=== PATIENT | female | born 1950 | race Caucasian/White ===

== ENCOUNTER → 2016-11-19 | Outpatient (CLI) | payer OTHER, MEDICARE ==
[~2016-11-19] MED LIST: CALC-354 PO; CIPR1TAB11 PO; HYDR1TAB2 PO; MULT1CHW18 PO; PHEN-876 PO; SIMV20TA5 PO; cipro PO
--- NOTE | 2016-11-19 15:33 | MAMMOGRAPHY REPORT ---
BILATERAL DIGITAL SCREENING MAMMOGRAM TOMOSYNTHESIS WITH CAD: 11/19/2016 CLINICAL HISTORY: Routine screening. Patient has no complaints. TECHNIQUE: Breast tomosynthesis in addition to standard 2D mammography was performed. Current study was also evaluated with a Computer Aided Detection (CAD) system. COMPARISON: Comparison is made to exams dated: 11/16/2015 mammogram, 11/14/2013 mammogram, 11/15/2014 mammogram, 11/10/2012 mammogram, 09/30/2011 mammogram, and 09/26/2010 mammogram - [facility]. BREAST COMPOSITION: There are scattered areas of fibroglandular density in both breasts. FINDINGS: The parenchymal pattern is similar to prior exams, with stable asymmetry in the medial le ft breast. A stable markus-shaped metallic biopsy marker in the upper outer quadrant of the left breas t. No developing mass, architectural distortion or cluster of suspicious microcalcifications is see n. IMPRESSION: ACR BI-RADS CATEGORY 2: BENIGN There is no mammographic evidence of malignancy. A 1 year screening mammogram is recommended. The p atient will receive written notification of the results. Approximately 10% of breast cancers are not detected with mammography. A negative mammographic repor t should not delay biopsy if a clinically suggestive mass is present. Cristin Dos Santos M.D. ay/:11/19/2016 13:31:51 Sponsorship Manager: Laura KOHLI(Damian)(M), [facility] letter sent: Normal 1/2 BI-RADS Code: ACR BI-RADS Category 2: Benign
== END | disposition home or self-care (01) ==
LOC: C.MAMM 10:02
PROVIDERS: ATTEND Obstetrics & Gynecology
DX: Z12.31 Encounter for screening mammogram for malignant neoplasm of breast (principal)

== ENCOUNTER → 2017-01-12 | Outpatient (CLI) | payer OTHER, MEDICARE ==
[2017-01-12 12:13] LABS: BASO % 0.8 %; BASO ABS # 0.03 K/uL (0-0.2); COMPLETE YES; EOS % 1.3 %; LYMPH % 29.7 %; LYMPH ABS # 1.14 K/uL (1.2-3.4); MEAN CORPUSCULAR HEMOGLOBIN 32.7 pg (25-34); MEAN CORPUSCULAR HGB CONC 32.4 g/dl (32-36); MEAN PLATELET VOLUME 11.9 fL (7.4-10.4); MONO % 12.5 %; NEUT % 55.7 %; PLATELET COUNT 247 K/uL (130-400); RED BLOOD COUNT 4.16 M/uL (4.2-5.4); WHITE BLOOD COUNT 3.84 K/uL (4.8-10.8)
== END | disposition home or self-care (01) ==
LOC: C.LAB1850 09:28
PROVIDERS: ATTEND Internal Medicine Pulmonary Disease
DX: I78.0 Hereditary hemorrhagic telangiectasia (principal)

== ENCOUNTER → 2017-02-04 | Outpatient (CLI) | payer OTHER, MEDICARE | END | disposition home or self-care (01) | LOC: C.PAPS 15:40 | PROVIDERS: ATTEND Obstetrics & Gynecology | DX: Z12.4 Encounter for screening for malignant neoplasm of cervix (principal); N81.4 Uterovaginal prolapse, unspecified ==

== ENCOUNTER → 2017-05-01 | Outpatient (CLI) | payer OTHER, MEDICARE ==
[2017-05-01 12:56] LABS: BASO % 0.8 %; BASO ABS # 0.03 K/uL (0-0.2); COMPLETE YES; EOS % 1.4 %; HEMATOCRIT 42.7 % (37-47); MEAN CELL VOLUME 99.8 fL (80-100); MEAN CORPUSCULAR HEMOGLOBIN 32.5 pg (25-34); MEAN CORPUSCULAR HGB CONC 32.6 g/dl (32-36); MEAN PLATELET VOLUME 12.2 fL (7.4-10.4); NEUT % 57.8 %; PLATELET COUNT 209 K/uL (130-400); RED BLOOD COUNT 4.28 M/uL (4.2-5.4)
[2017-05-01 13:14] LABS: INR 0.9 (0.9-1.1); PROTHROMBIN TIME (PATIENT) 9.4 SECONDS (9.0-12.0)
[2017-05-01 13:24] LABS: BLOOD UREA NITROGEN 20 mg/dl (7-18); CREATININE 0.96 mg/dl (0.60-1.20); GLUCOSE 94 mg/dl (70-99)
[2017-05-01 13:25] LABS: ALT/SGPT 36 U/L (12-78); BUN/CREATININE RATIO 20.5 (10-20); CALCIUM 9.3 mg/dl (8.5-10.1); CARBON DIOXIDE 31 mmol/L (21-32); CHLORIDE 109 mmol/L (98-107); POTASSIUM 4.3 mmol/L (3.5-5.1); SODIUM 141 mmol/L (136-145)
[2017-05-01 13:27] LABS: AST/SGOT 29 U/L (15-37)
[2017-05-01 13:28] LABS: ALKALINE PHOSPHATASE 89 U/L (45-117)
== END | disposition home or self-care (01) ==
LOC: C.LABPVFM 07:30
PROVIDERS: ATTEND Radiology Diagnostic Radiology
DX: I78.0 Hereditary hemorrhagic telangiectasia (principal); Q25.72 Congenital pulmonary arteriovenous malformation; E78.5 Hyperlipidemia, unspecified

== ENCOUNTER 2017-09-05 11:34 | Emergency (ER) | payer OTHER, MEDICARE ==
[~2017-09-05] VITALS: Ht 167.6 cm; Wt 64.2 kg
[~2017-09-05 11:34] MED LIST changes: -FERR1TAB61 PO
[2017-09-05 11:36] VITALS: TEMP 38.1; Ht 167.6 cm; Wt 64.2 kg
[2017-09-05] MEDS ORDERED: SODIUM CHLORIDE 0.9% 1000ML 1,000 ML IV STA (11:54)
[2017-09-05] MEDS ORDERED: CEFTRIAXONE SOD INJ 1 GM ADDVIAL IV STA (11:54)
[2017-09-05] MEDS ORDERED: OPTIRAY 320 IV PRN (12:15)
[2017-09-05 12:33] LABS: HEMATOCRIT 32.7 % (37-47); MEAN CELL VOLUME 97.3 fL (80-100); MEAN CORPUSCULAR HEMOGLOBIN 32.7 pg (25-34); MEAN CORPUSCULAR HGB CONC 33.6 g/dl (32-36); MEAN PLATELET VOLUME 10.9 fL (7.4-10.4); PLATELET COUNT 270 K/uL (130-400); RED BLOOD COUNT 3.36 M/uL (4.2-5.4); WHITE BLOOD COUNT 16.63 K/uL (4.8-10.8)
[2017-09-05 12:52] LABS: BASO % 0.1 %; BASO ABS # 0.02 K/uL (0-0.2); COMPLETE YES; IG% 0.2 %; LYMPH % 6.4 %; LYMPH ABS # 1.06 K/uL (1.2-3.4); MONO % 9.1 %; NEUT % 84.2 %
[2017-09-05 12:53] LABS: BUN/CREATININE RATIO 15.5 (10-20); CALCIUM 8.7 mg/dl (8.5-10.1); CREATININE 0.92 mg/dl (0.60-1.20); POTASSIUM 3.8 mmol/L (3.5-5.1)
[2017-09-05 13:01] LABS: C-REACTIVE PROTEIN 26.2 mg/dl (0-0.29)
[2017-09-05] MEDS ORDERED: FERR1TAB61 PO (13:19)
[2017-09-05 14:34] LABS: URINE APPEARANCE CLEAR (CLEAR); URINE BILIRUBIN NEG (NEG); URINE COLOR YELLOW; URINE EPITHELIAL CELL AUTO 0-5 /lpf (0-5); URINE NITRITE NEG (NEG); URINE SPECIFIC GRAVITY > 1.045 (1.000-1.030); UROBILINOGEN NEG (NEG); ZZUR CULT IF INDIC CLEAN CATCH YES
[2017-09-05 14:42] LABS: MANUAL MICROSCOPIC REQUIRED? NO; REVIEW REQ? NO
--- NOTE | 2017-09-05 14:43 | DIAGNOSTIC IMAGING REPORT ---
CT OF THE ABDOMEN AND PELVIS WITH CONTRAST CLINICAL HISTORY: Pelvic pain and fever status post hysterectomy 2 weeks ago. COMPARISON STUDY: CT of the abdomen and pelvis December 27, 2012. TECHNIQUE: Following IV administration of 92 mL of Optiray-320, axial images of the abdomen and pelvis were obtained from the lung bases to the proximal femurs. Images were reviewed in the axial, sagittal, and coronal planes. IV contrast was administered without complication. A dose lowering technique was utilized adhering to the principles of ALARA. CT DOSE: 448.52 mGy.cm FINDINGS: Visualized portions of the lower chest demonstrate numerous endovascular coils within the lungs, possibly within arteriovenous malformations. The liver, spleen, adrenal glands, kidneys and pancreas are unremarkable. There is no biliary or pancreatic ductal dilatation. There is no pneumatosis, free air or portal venous gas. There is no evidence for a bowel obstruction. The appendix is not visualized. There is infiltration with multiple small pockets of loculated fluid within the hysterectomy bed. These demonstrate mild peripheral enhancement. A central pelvic fluid collection measures 2.6 x 2.5 cm. A left pelvic fluid collection measures 2.7 x 1.3 cm. There are smaller pockets of fluid. No suspicious osseous lesions are present with there is no lymphadenopathy. IMPRESSION: Infiltration and multiple small fluid collections within the hysterectomy bed. These collections demonstrate partial peripheral enhancement and suggest phlegmon with developing small abscesses. No dominant drainable abscess. Electronically signed by: Kenrick Milan M.D. 09/05/2017 2:07 PM Dictated Date/Time: 09/05/2017 1:59 PM
[2017-09-05] MEDS ORDERED: PIPERACILLIN/TAZOBACTAM 4.5 GM/100ML D5W IV STA (14:47)
[2017-09-05] MEDS ORDERED: METRONIDAZOLE 500MG / 100ML NSS IV STA (15:19)
--- NOTE | 2017-09-05 15:38 | EMERGENCY ROOM VISIT NOTE ---
History Report prepared by Mitra: Kary Armstrong Under the Supervision of: Dr. Rico Miller D.O. First contact with patient: 11:50 Chief Complaint: ABDOMINAL PAIN Stated Complaint: ABD. PAIN, CHILLS, FEVER History of Present Illness The patient is a 66 year old female who presents to the Emergency Room with complaints of intermittent abdominal pain since July. She rates the pain at a 10/10. The patient states that she had a complete hysterectomy done at [facility] in July by Dr. Oates. She states that since this, she has had abdominal pain, fevers, and chills. She reports having vaginal discharge since yesterday, but no bleeding. The patient also reports a history of a cholecystectomy. Source of History: patient Onset: July Position: abdomen Symptom Intensity: rated at a 10/10 Timing: intermittent Associated Symptoms: + fevers, + chills Note: patient also reports having vaginal discharge, but no bleeding Review of Systems See HPI for pertinent positives & negatives. A total of 10 systems reviewed and were otherwise negative. Past Medical & Surgical Surgical Problems: (1) Hx of cholecystectomy (2) S/P complete hysterectomy Family History Cancer Hypertension Lung disease Social History Smoking Status: Never Smoker Alcohol Use: none Marital Status: Housing Status: lives with family Occupation Status: unemployed Current/Historical Medications Scheduled Calcium Carbonate-Cholecalcife (Caltrate 600+D), 1 TABLET PO BID Ferrous Sulfate (Iron), 1 TAB PO DAILY Multiple Vitamins W/ Minerals (Multivitamin Gummies Adul), 1 CHW PO DAILY Simvastatin (Zocor), 20 MG PO QPM Allergies Coded Allergies: Povidone Iodine (Verified Allergy, Unknown, rash, 09/05/17) Physical Exam Vital Signs Date Time Temp Pulse Resp B/P (MAP) Pulse Ox O2 Delivery O2 Flow Rate FiO2 09/05/17 14:18 90 18 121/66 94 Room Air 09/05/17 12:46 89 20 125/63 94 09/05/17 11:36 38.1 102 20 125/73 95 Room Air Physical Exam CONSTITUTIONAL/VITAL SIGNS: Reviewed / noted above. GENERAL: Non-toxic in appearance. INTEGUMENTARY: Warm, dry, and [place]. HEAD: Normocephalic. EYES: without scleral icterus or trauma. ENT/OROPHARYNX: clear and moist. LYMPHADENOPATHY/NECK: Is supple without lymphadenopathy or meningismus. RESPIRATORY: Lungs clear and equal. CARDIOVASCULAR: Regular rate and rhythm. GI/ABDOMEN: Soft and nontender. No organomegaly or pulsatile mass. No rebound or guarding. Normal bowel sounds. EXTREMITIES: Warm and well perfused. BACK: No CVA tenderness. NEUROLOGICAL: Intact without focal deficits. PSYCHIATRIC: normal affect. MUSCULOSKELETAL: Normally developed with good muscle tone. Medical Decision & Procedures ER Provider Diagnostic Interpretation: Radiology results as stated below per my review and radiologist interpretation: CT OF THE ABDOMEN AND PELVIS WITH CONTRAST CLINICAL HISTORY: Pelvic pain and fever status post hysterectomy 2 weeks ago. COMPARISON STUDY: CT of the abdomen and pelvis December 27, 2012. TECHNIQUE: Following IV administration of 92 mL of Optiray-320, axial images of the abdomen and pelvis were obtained from the lung bases to the proximal femurs. Images were reviewed in the axial, sagittal, and coronal planes. IV contrast was administered without complication. A dose lowering technique was utilized adhering to the principles of ALARA. CT DOSE: 448.52 mGy.cm FINDINGS: Visualized portions of the lower chest demonstrate numerous endovascular coils within the lungs, possibly within arteriovenous malformations. The liver, spleen, adrenal glands, kidneys and pancreas are unremarkable. There is no biliary or pancreatic ductal dilatation. There is no pneumatosis, free air or portal venous gas. There is no evidence for a bowel obstruction. The appendix is not visualized. There is infiltration with multiple small pockets of loculated fluid within the hysterectomy bed. These demonstrate mild peripheral enhancement. A central pelvic fluid collection measures 2.6 x 2.5 cm. A left pelvic fluid collection measures 2.7 x 1.3 cm. There are smaller pockets of fluid. No suspicious osseous lesions are present with there is no lymphadenopathy. IMPRESSION: Infiltration and multiple small fluid collections within the hysterectomy bed. These collections demonstrate partial peripheral enhancement and suggest phlegmon with developing small abscesses. No dominant drainable abscess. Electronically signed by: Kenrick Milan M.D. 09/05/2017 2:07 PM Dictated Date/Time: 09/05/2017 1:59 PM Laboratory Results 09/05/17 12:20 Red Blood Count 3.36, Mean Corpuscular Volume 97.3, Mean Corpuscular Hemoglobin 32.7, Mean Corpuscular Hemoglobin Concent 33.6, Mean Platelet Volume 10.9, Neutrophils (%) (Auto) 84.2, Lymphocytes (%) (Auto) 6.4, Monocytes (%) (Auto) 9.1, Eosinophils (%) (Auto) 0.0, Basophils (%) (Auto) 0.1, Neutrophils # (Auto) 14.00, Lymphocytes # (Auto) 1.06, Monocytes # (Auto) 1.51, Eosinophils # (Auto) 0.00, Basophils # (Auto) 0.02 09/05/17 12:20 Test 09/05/17 12:20 09/05/17 14:20 White Blood Count 16.63 K/uL (4.8-10.8) Red Blood Count 3.36 M/uL (4.2-5.4) Hemoglobin 11.0 g/dL (12.0-16.0) Hematocrit 32.7 % (37-47) Mean Corpuscular Volume 97.3 fL (80-100) Mean Corpuscular Hemoglobin 32.7 pg (25-34) Mean Corpuscular Hemoglobin Concent 33.6 g/dl (32-36) Platelet Count 270 K/uL (130-400) Mean Platelet Volume 10.9 fL (7.4-10.4) Neutrophils (%) (Auto) 84.2 % Lymphocytes (%) (Auto) 6.4 % Monocytes (%) (Auto) 9.1 % Eosinophils (%) (Auto) 0.0 % Basophils (%) (Auto) 0.1 % Neutrophils # (Auto) 14.00 K/uL (1.4-6.5) Lymphocytes # (Auto) 1.06 K/uL (1.2-3.4) Monocytes # (Auto) 1.51 K/uL (0.11-0.59) Eosinophils # (Auto) 0.00 K/uL (0-0.5) Basophils # (Auto) 0.02 K/uL (0-0.2) RDW Standard Deviation 45.0 fL (36.4-46.3) RDW Coefficient of Variation 12.7 % (11.5-14.5) Immature Granulocyte % (Auto) 0.2 % Immature Granulocyte # (Auto) 0.04 K/uL (0.00-0.02) Erythrocyte Sedimentation Rate 82 mm/hr (0-21) Anion Gap 4.0 mmol/L (3-11) Est Creatinine Clear Calc Drug Dose 54.8 ml/min Estimated GFR () 74.2 Estimated GFR (Non- 64.0 BUN/Creatinine Ratio 15.5 (10-20) Lactic Acid Level 1.2 mmol/L (0.4-2.0) Calcium Level 8.7 mg/dl (8.5-10.1) Total Bilirubin 0.7 mg/dl (0.2-1) Direct Bilirubin 0.2 mg/dl (0-0.2) Aspartate Amino Transf (AST/SGOT) 17 U/L (15-37) Alanine Aminotransferase (ALT/SGPT) 26 U/L (12-78) Alkaline Phosphatase 113 U/L (45-117) C-Reactive Protein 26.20 mg/dl (0-0.29) Total Protein 7.5 gm/dl (6.4-8.2) Albumin 2.8 gm/dl (3.4-5.0) Urine Color YELLOW Urine Appearance CLEAR (CLEAR) Urine pH 5.0 (4.5-7.5) Urine Specific [place] > 1.045 (1.000-1.030) Urine Protein 1+ (NEG) Urine Glucose (UA) NEG (NEG) Urine Ketones TRACE (NEG) Urine Occult Blood 1+ (NEG) Urine Nitrite NEG (NEG) Urine Bilirubin NEG (NEG) Urine Urobilinogen NEG (NEG) Urine Leukocyte Esterase MODERATE (NEG) Urine WBC (Auto) >30 /hpf (0-5) Urine RBC (Auto) 5-10 /hpf (0-4) Urine Hyaline Casts (Auto) 5-10 /lpf (0-5) Urine Epithelial Cells (Auto) 0-5 /lpf (0-5) Urine Bacteria (Auto) NEG (NEG) Laboratory results as stated above per my review. Medications Administered Medications (Trade) Dose Ordered Sig/Ming Route Start Time Stop Time Status Last Admin Dose Admin Sodium Chloride 1,000 ml @ 999 mls/hr Q1H1M STAT IV 09/05/17 11:54 09/05/17 12:54 DC 09/05/17 12:45 999 MLS/HR Ceftriaxone Sodium (Rocephin Inj) 1 gm NOW STAT IV 09/05/17 11:54 09/05/17 11:57 DC 09/05/17 12:45 1 GM ED Course 1150: Previous medical records were reviewed. The patient was evaluated in room B10. A complete history and physical examination was performed. 1154: Ordered Rocephin Inj 1 gm IV, Sodium Chloride 1,000 ml @ 999 mls/hr IV. Medical Decision Differential considered: pancreatitis, hepatitis, or acute cholecystitis, AAA, UTI, pyelonephritis, kidney stones, appendicitis, diverticulitis, shingles, bowel obstruction mesenteric ischemia, intussusception,hernia, ovarian torsion , ruptured ovarian cyst. This is a 66-year-old female who presents to the ED with a chief complaint of lower pelvic pain, fevers and chills and a vaginal discharge. The patient states that she was seen at the outpatient clinic and had a pelvic exam where cultures were drawn. The physician there felt that there was purulent discharge from the pelvis and sent cultures. She was sent here for further evaluation. The patient had a hysterectomy on August 24. Her symptoms started about 1 week after she had a hysterectomy. Her symptoms have progressed and increased in intensity. The patient's initial temperature here was 38.1. She was slightly tachycardic with a heart rate of 102. The white blood cell count was 16.6, sedimentation rate and CRP are elevated. Her exam did not reveal any significant abdominal tenderness. Pelvic exam was deferred since it was just done as per the outpatient doctor, there was purulent discharge. CT scan of the abdomen and pelvis reveals a phlegmon with developing small abscesses in the pelvic area in the hysterectomy bed. I spoke with Dr. Clark (CYTOLOGY TECHNOLOGIST) from [facility] who feels that the patient at this time only needs IV antibiotics. She states that the patient can be treated here and does not require surgery at this time. The patient is a have broad-spectrum antibiotics and can possibly be discharged on outpatient antibiotics once the white blood cell count and fevers improved. 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 I spoke with Dr. Bustillo, the hospitalist who refuses to admit the patient as this is a gynecologic postsurgical infection. I spoke with Dr. Hurst who contacted [facility] about the patient and talked with Dr. Clark. The patient will be accepted at [facility]. The patient was accepted to the emergency department by Dr. Velez. She will be transported there by [facility] ambulance. She was treated here with normal saline 1 L IV, IV Rocephin, IV Zosyn and IV Flagyl. Medication Reconcilliation Current Medication List: was personally reviewed by me Blood Pressure Screening Patient's blood pressure: Normal blood pressure Impression Primary Impression: Phlegmon Additional Impressions: Pelvic infection in female Status post vaginal hysterectomy Scribe Attestation The scribe's documentation has been prepared under my direction and personally reviewed by me in its entirety. I confirm that the note above accurately reflects all work, treatment, procedures, and medical decision making performed by me. Departure Information Dispostion Transfer Acute Care Facility Referrals No Doctor, Assigned (PCP) Patient Instructions My [facility] Problem Qualifiers
[2017-09-05 19:04] VITALS: BP 132/89; PULSE 68; O2SAT 98
== END 2017-09-05 19:30 | disposition short-term general hospital (02) ==
LOC: C.EDB 11:37
DX: K68.9 Other disorders of retroperitoneum (principal); N73.9 Female pelvic inflammatory disease, unspecified; T81.4XXA Infection following a procedure, initial encounter; Y84.8 Other medical procedures as the cause of abnormal reaction of the patient, or of later complication, without mention of misadventure at the time of the procedure; Z90.710 Acquired absence of both cervix and uterus; Z82.49 Family history of ischemic heart disease and other diseases of the circulatory system

== ENCOUNTER → 2017-09-05 | Outpatient (CLI) | payer OTHER, MEDICARE ==
[~2017-09-05] MED LIST changes: +FERR1TAB61 PO
== END | disposition home or self-care (01) ==
LOC: C.LABPVFM 10:20
PROVIDERS: ATTEND Family Medicine
DX: R39.9 Unspecified symptoms and signs involving the genitourinary system (principal)

== ENCOUNTER → 2017-11-12 | Outpatient (CLI) | payer OTHER, MEDICARE ==
[~2017-11-12] MED LIST changes: -CIPR1TAB11 PO; +FERR1TAB61 PO; -HYDR1TAB2 PO; -PHEN-876 PO; -cipro PO
[2017-11-12 12:36] LABS: BASO % 1.4 %; BASO ABS # 0.04 K/uL (0-0.2); EOS ABS # 0.03 K/uL (0-0.5); HEMATOCRIT 39.6 % (37-47); HEMOGLOBIN 12.7 g/dL (12.0-16.0); IG# 0.01 K/uL (0.00-0.02); LYMPH % 35.1 %; LYMPH ABS # 1.04 K/uL (1.2-3.4); MEAN CELL VOLUME 97.3 fL (80-100); MEAN CORPUSCULAR HEMOGLOBIN 31.2 pg (25-34); MEAN CORPUSCULAR HGB CONC 32.1 g/dl (32-36); MEAN PLATELET VOLUME 12.1 fL (7.4-10.4); MONO % 9.5 %; MONO ABS # 0.28 K/uL (0.11-0.59); NEUT % 52.7 %; NEUT ABS # 1.56 K/uL (1.4-6.5); PLATELET COUNT 227 K/uL (130-400); RED CELL DISTRIBUTION WIDTH SD 53.1 fL (36.4-46.3); WHITE BLOOD COUNT 2.96 K/uL (4.8-10.8)
[2017-11-12 13:21] LABS: ALBUMIN 3.5 gm/dl (3.4-5.0); BLOOD UREA NITROGEN 15 mg/dl (7-18); CALCIUM 9.3 mg/dl (8.5-10.1); CARBON DIOXIDE 30 mmol/L (21-32); CREATININE 0.95 mg/dl (0.60-1.20); GLUCOSE 94 mg/dl (70-99); POTASSIUM 4.8 mmol/L (3.5-5.1); SODIUM 140 mmol/L (136-145)
[2017-11-12 13:26] LABS: ALKALINE PHOSPHATASE 94 U/L (45-117); ALT/SGPT 29 U/L (12-78); AST/SGOT 19 U/L (15-37); CHOLESTEROL 163 mg/dl (0-200); LDL CHOLESTEROL CALCULATED 80 mg/dl
== END | disposition home or self-care (01) ==
LOC: C.LABPVFM 07:58
PROVIDERS: ATTEND Family Medicine
DX: Z00.00 Encounter for general adult medical examination without abnormal findings (principal); E78.5 Hyperlipidemia, unspecified; R04.0 Epistaxis; H61.23 Impacted cerumen, bilateral; S20.219A Contusion of unspecified front wall of thorax, initial encounter; X58.XXXA Exposure to other specified factors, initial encounter

== ENCOUNTER → 2017-11-20 | Outpatient (CLI) | payer OTHER, MEDICARE ==
--- NOTE | 2017-11-23 08:07 | MAMMOGRAPHY REPORT ---
BILATERAL DIGITAL SCREENING MAMMOGRAM TOMOSYNTHESIS WITH CAD: 11/20/2017 CLINICAL HISTORY: Routine screening. Patient has no complaints. TECHNIQUE: Breast tomosynthesis in addition to standard 2D mammography was performed. Current study was also evaluated with a Computer Aided Detection (CAD) system. COMPARISON: Comparison is made to exams dated: 11/19/2016 mammogram, 11/22/2015 mammogram, 11/16/2015 m ammogram, 11/15/2014 mammogram, 11/14/2013 mammogram, and 11/10/2012 mammogram - [facility] enter. BREAST COMPOSITION: There are scattered areas of fibroglandular density in both breasts. FINDINGS: There is a stable markus-shaped biopsy marker clip in the upper outer anterior left breast. N o suspicious mass, architectural distortion or cluster of microcalcifications is seen. IMPRESSION: ACR BI-RADS CATEGORY 1: NEGATIVE There is no mammographic evidence of malignancy. A 1 year screening mammogram is recommended. The pa tient will receive written notification of the results. Approximately 10% of breast cancers are not detected with mammography. A negative mammographic report should not delay biopsy if a clinically suggestive mass is present. Cristin Dos Santos M.D. ay/:11/20/2017 14:46:14 Faculty Research Assistant: Laura KOHLI(R)(M), [facility] letter sent: Normal 1/2 BI-RADS Code: ACR BI-RADS Category 1: Negative
== END | disposition home or self-care (01) ==
LOC: C.MAMM 10:07
PROVIDERS: ATTEND Obstetrics & Gynecology
DX: Z12.31 Encounter for screening mammogram for malignant neoplasm of breast (principal)

== ENCOUNTER → 2018-05-10 | Outpatient (CLI) | payer OTHER, MEDICARE ==
[2018-05-10 13:40] LABS: ALBUMIN 3.7 gm/dl (3.4-5.0); ALKALINE PHOSPHATASE 82 U/L (45-117); ALT/SGPT 27 U/L (12-78); AST/SGOT 24 U/L (15-37); BLOOD UREA NITROGEN 18 mg/dl (7-18); CALCIUM 8.7 mg/dl (8.5-10.1); CARBON DIOXIDE 29 mmol/L (21-32); CHOLESTEROL 184 mg/dl (0-200); CREATININE 1.02 mg/dl (0.60-1.20); GLUCOSE 92 mg/dl (70-99); LDL CHOLESTEROL CALCULATED 102 mg/dl; POTASSIUM 4.2 mmol/L (3.5-5.1); SODIUM 140 mmol/L (136-145); TOTAL PROTEIN 7.1 gm/dl (6.4-8.2)
== END | disposition home or self-care (01) ==
LOC: C.LABPVFM 08:04
PROVIDERS: ATTEND Family Medicine
DX: E78.5 Hyperlipidemia, unspecified (principal); D72.819 Decreased white blood cell count, unspecified; Z90.710 Acquired absence of both cervix and uterus; S93.409A Sprain of unspecified ligament of unspecified ankle, initial encounter; X58.XXXA Exposure to other specified factors, initial encounter

== ENCOUNTER → 2018-05-14 | Outpatient (CLI) | payer OTHER, MEDICARE ==
[~2018-05-14] MED LIST changes: +OPTIRAY 320 IV PRN
--- NOTE | 2018-05-14 13:37 | DIAGNOSTIC IMAGING REPORT ---
CT (CHEST) THORAX WITH CT DOSE: 247.91 mGy.cm HISTORY: Postprocedural embolization PULM AVMEMBOLIVATION TECHNIQUE: Multiaxial CT images of the chest were performed following the intravenous administration of contrast. A dose lowering technique was utilized adhering to the principles of ALARA. COMPARISON: 11/06/2011. 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 Multiple surgical clips are present. The previously described vascular malformations involving the right lower and right middle lobe region have remains stable. There are no new or interval findings. Postprocedural changes right lung base have improved. The lungs are clear. The mediastinal vascular structures are within normal limits. No mediastinal or hilar lymphadenopathy. No pleural effusion or pneumothorax. Limited views of the upper abdomen demonstrate a normal liver and spleen. IMPRESSION: 1. 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 2. All remaining vascular malformations are unremarkable on a post procedural bases. 3. Lungs are considered clear with no focal infiltrative change. The above report was generated using voice recognition software. It may contain grammatical, syntax or spelling errors. Electronically signed by: Higinio Britton M.D. 05/14/2018 1:36 PM Dictated Date/Time: 05/14/2018 1:30 PM
== END | disposition home or self-care (01) ==
LOC: C.CTS 12:31
PROVIDERS: ATTEND Internal Medicine Pulmonary Disease
DX: Q25.72 Congenital pulmonary arteriovenous malformation (principal)